=== PATIENT | male | born 2005 | race Hispanic/Latino ===

== ENCOUNTER 2024-08-17 15:24 | Emergency (ER) | payer SELFPAY ==
[2024-08-17 16:01] LABS: Bacteria/HPF None Seen HPF (None Seen); CAUTI Indications for Culture Dysuria,urgency,freq; Glucose, Urine (Dipstick) Normal (Negative); Leukocyte Negative Leu/uL (Negative); Protein, Urine (Dipstick) Negative (Neg-Trace); RBC/HPF None Seen HPF (0-3); Specific Gravity, Urine 1.018 (1.002-1.036); WBC/HPF 0-3 HPF (0-3)
[2024-08-17 16:08] LABS: Urine Culture Reflex No No
[2024-08-17] MEDS ORDERED: Ketorolac Tromethamine 30 MG (1 mL) VIAL ONE (17:22)
[2024-08-17] MEDS ORDERED: Acetaminophen 500 MG TAB ONE (17:23)
== END 2024-08-17 17:30 | disposition home or self-care (01) ==
LOC: ERS 15:24
DX: M54.50 Low back pain, unspecified (principal)
CPT/HCPCS: 81001; 96372; 99283; J1885

== ENCOUNTER 2025-01-05 15:22 | Emergency (ER) | payer SELFPAY ==
[~2025-01-05 15:22] MED LIST: Iopamidol-370 76% 500 ML MDV (1 ML CHARGE) ONE
[2025-01-05 17:33] LABS: #Basophils 0.04 10x3/uL (0.0-0.2); #Eosinophils 0.26 10x3/uL (0.0-0.7); #Monocytes 0.72 10x3/uL (0.11-0.59); #Neutrophils 4.05 10x3/uL (1.40-6.50); %Basophils 0.5 % (0.0-1.0); %Eosinophils 3.6 % (0.0-10.0); %Lymphocytes 30.6 % (28.0-48.0); %Monocytes 9.8 % (0.0-4.0); %Neutrophils 55.4 % (31.0-61.0); Hematocrit 44.5 % (42.0-52.0); Hemoglobin 15.1 g/dL (14.0-18.0); Mean Corpuscular Hemoglobin 29.7 pg (25.0-35.0); Mean Corpuscular Volume 87.4 fL (78.0-98.0); Platelet Count 296 10x3/uL (130-400); Red Blood Cell (RBC) Count 5.09 mill/uL (4.00-5.20); White Blood Cell (WBC) Count 7.32 10x3/uL (4.8-10.8)
[2025-01-05 17:51] LABS: ALT (SGPT) 9 U/L (Less than 45); AST (SGOT) 15 U/L (11-34); Albumin 4.5 g/dL (3.1-4.5); Alkaline Phosphatase 62 U/L (50-130); Anion Gap 15 mmol/L (10-20); BUN (Urea Nitrogen) 9 mg/dL (8.9-20.6); Bilirubin, Total 0.5 mg/dL (0.3-1.2); Calc. Creatinine Clearance 0 mL/min (70-130); Calcium 9.2 mg/dL (7.8-10.44); Carbon Dioxide 25 mmol/L (22-29); Chloride 104 mmol/L (98-107); Globulin 2.6 g/dL (2.4-3.5); Glucose 98 mg/dL (70-105); Lipase 25 U/L (8-78); Potassium 4.0 mmol/L (3.5-5.1); Sodium 140 mmol/L (136-145)
== END 2025-01-05 19:11 | disposition home or self-care (01) ==
LOC: ERS 15:22
DX: I88.0 Nonspecific mesenteric lymphadenitis (principal)
CPT/HCPCS: 71046; 74177; 80053; 83690; 84484; 85025; 93005; Q9967